=== PATIENT | female | born 1970 | race Caucasian/White ===

== ENCOUNTER 2020-07-13 21:48 | Emergency (ER) | payer OTHER ==
[~2020-07-13] VITALS: Ht 175.3 cm; Wt 90.7 kg
[~2020-07-13 21:48] MED LIST: ACCUNEB SO1.25 MG/1; ACETAMINOPHEN-1 EAC1 PO; ALBUTEROL INH INH; ALBUTEROL2.5 MG/31 IH; ALORA1 EAC3 TOP; AMOXICILLIN/POTASSIU; AMOXICILLIN500 M1 PO; APAP/CODEINE ELI5 M1 PO; ATIVAN1 M1 PO; ATIVAN1 MG PO; ATROVENT15 ML NS; AUGMENTIN 875875 MG PO; AURALGAN EAR DR14 ML OT; AZITHROMYCIN 2250 MG PO; BACLOFEN 10MG T10 MG PO; BACTRIM DS TAB1 EACH PO; BENADRYL25 MG PO; BUSPIRONE HCL10 MG; BUTALB-APAP-CA1 EACH PO; CARAFATE1 GM PO; CARISOPRODOL 3350 MG; CARISOPRODOL 3350 MG PO; CATAPRES-TTS 10.1 M2 TD; CELEBREX 200 M200 MG PO; CELEXA20 MG PO; CELEXA40 MG PO; CIPROFLOXACIN500 M1 PO; CLARITIN10 MG PO; CLONAZEPAM 1 MG1 M1 PO; CYMBALTA30 MG PO; DICLOFENAC SODI75 MG PO; DIFLUCAN150 MG PO; DOXYCYCLINE 10100 MG PO; EXALGO16 MG PO; FIORICET 50-321 EACH PO; FLAGYL500 M1 PO; FLAGYL500 MG PO; FLEXERIL PO; FLONASE NS; HYDROCODON-ACE1 EAC7; HYDROCODONE-AC120 ML PO; HYDROCODONE-AP1 EA14; HYDROCODONE-AP1 EAC6 PO; HYDROCODONE-APA1 TA1; IBUPROFEN 600600 M1 PO; IBUPROFEN 800800 M1 PO; IBUPROFEN 800800 MG PO; IMITREX100 MG PO; INDOMETHACIN 2525 MG PO; LOESTRIN 24 FE1 EACH PO; LORTAB 5 MG/5001 TA1 PO; MAXALT MLT10 MG PO; MEDROLDOSEPACK PO; MIDRIN CAPSULE1 CAP; MIRENA1 EACH IY; MS CONTIN 60 MG60 MG; MUCINEX22 ML; MULTIVITAMINS1 EAC7 PO; NAPROSYN500 MG PO; NORCO 5-325 TA1 EAC1 PO; NORCO 5-325 TA1 EACH PO; NORCO 7.5-3251 EACH; OPANA ER30 MG PO; OPANA5 MG PO; OTHER MISCELL; PERCOCET 10-321 EAC1 PO; PERCOCET 5-3251 EACH PO; PHENAZOPYRIDIN200 M2 PO; PHENERGAN 25 MG25 M1; PHENERGAN 25 MG25 M1 PO; PHENERGAN25 M1 RECTAL; PREDNISONE 20 M20 M1 PO; PREDNISONE 20 M20 MG PO; PREDNISONE50 MG PO; PROMETHAZINE HC25 M1 PO; QVAR8.7 G1 INH; RANITIDINE 150150 MG PO; REGLAN10 MG PO; RELPAX40 MG; REQUIP 1 MG TABL1 M1 PO; ROBAXIN500 MG PO; SINGULAIR; SINGULAIR 10 MG10 M1 PO; SOMA250 MG PO; SUBOXONE 8 MG-1 EAC3 SUBLING; SUMATRIPTAN; SYMBICORT160 MCG/4.; SYMBICORT80 MCG/4.1 INH; TIZANIDINE HCL4 MG PO; TOPAMAX 100 MG100 MG; TOPAMAX 100 MG100 MG PO; TOPAMAX100 MG PO; TOPAMAX200 MG PO; TORADOL 10 MG T10 MG PO; TUSSIONEX PENN473 ML PO; VENTOLIN HFA 1818 GM; VICODIN 5-5001 EACH PO; XANAX 0.25 MG0.25 MG PO; XANAX 0.5 MG0.5 M1; XANAX 0.5 MG0.5 MG PO; ZANAFLEX4 MG PO; ZOFRAN ODT4 MG DISSOLVE; ZOFRAN ODT4 MG PO; ZOFRAN ODT4 MG SUBLING; ZOMIG2.5 M1 NS; ZPAK PO; [UNRECOGNIZED DRUG - OTHER] PO
[2020-07-13] MEDS ORDERED: CYMBALTA60 MG PO (22:16)
[2020-07-13] MEDS ORDERED: ROPINIROLE HCL0.5 MG PO (22:16)
[2020-07-13 22:27] LABS: URINE BILIRUBIN NEGATIVE (Negative); URINE BLOOD NEGATIVE (Negative); URINE CLARITY CLEAR; URINE COLOR YELLOW; URINE GLUCOSE-RANDOM* NEGATIVE (Negative); URINE KETONES TRACE (Negative); URINE LEUKOCYTES-REFLEX NEGATIVE (Negative); URINE NITRITE-REFLEX NEGATIVE (Negative); URINE PROTEIN (DIPSTICK) NEGATIVE (Negative); URINE SPECIFIC GRAVITY >= 1.030 (1.005-1.035)
[2020-07-13 23:58] LABS: ANION GAP 11 mmol/L (7-16); BUN 13 mg/dL (7-18); CALCIUM 8.4 mg/dL (8.5-10.1); CHLORIDE 107 mmol/L (98-107); CO2 28 mmol/L (21-32); CREATININE 0.6 mg/dL (0.6-1.0); GLUCOSE 85 mg/dL (74-106); SODIUM 146 mmol/L (136-145)
[2020-07-14 00:05] LABS: ALBUMIN 3.4 g/dL (3.4-5.0); DIRECT BILIRUBIN < 0.1 mg/dL (<0.1-0.2); LIPASE 123 U/L (73-393); SGOT 23 U/L (15-37); SGPT 16 U/L (30-65); TOTAL BILIRUBIN 0.4 mg/dL (0.2-1.0); TOTAL PROTEIN 6.6 g/dL (6.4-8.2)
[2020-07-14 00:07] LABS: POTASSIUM 4.7 mmol/L (3.5-5.1)
[2020-07-14 01:15] LABS: ABSOLUTE NEUTROPHILS 4.1 thou/uL (1.4-8.2); BASOPHILS 0.6 % (0.0-2.0); EOSINOPHILS 3.2 % (0.0-3.0); HEMATOCRIT 38.3 % (37.0-47.0); LYMPHOCYTES 47.5 % (24.0-44.0); MCV 91.4 fL (80.0-100.0); MONOCYTES 5.6 % (1.0-8.0); PLATELET COUNT 163 thou/uL (150-400); POLYS 43.1 % (36.0-66.0); RBC 4.19 mil/uL (4.20-5.00); RDW 12.7 % (10.5-14.5); WBC 9.5 thou/uL (4.0-11.0)
[2020-07-14 05:09] VITALS: BP 117/63
== END 2020-07-14 05:09 | disposition home or self-care (01) ==
LOC: ER 21:48
PROVIDERS: Emergency Medicine
DX: R10.9 Unspecified abdominal pain (principal); R11.0 Nausea; G43.909 Migraine, unspecified, not intractable, without status migrainosus; J45.909 Unspecified asthma, uncomplicated; M79.7 Fibromyalgia; F17.210 Nicotine dependence, cigarettes, uncomplicated; Z88.1 Allergy status to other antibiotic agents; Z88.8 Allergy status to other drugs, medicaments and biological substances; Z79.899 Other long term (current) drug therapy; Z90.49 Acquired absence of other specified parts of digestive tract

== ENCOUNTER 2020-09-01 21:48 | Emergency (ER) | payer OTHER ==
[~2020-09-01] VITALS: Ht 175.3 cm; Wt 91.2 kg
[~2020-09-01 21:48] MED LIST changes: +CYMBALTA60 MG PO; +ROPINIROLE HCL0.5 MG PO
[2020-09-01 21:55] VITALS: BP 136/92
[2020-09-01] MEDS ORDERED: PERCOCET 10-321 EAC1 PO (22:02)
== END 2020-09-01 22:49 | disposition left against medical advice (07) ==
LOC: ER 21:48
DX: R10.32 Left lower quadrant pain (principal); G43.909 Migraine, unspecified, not intractable, without status migrainosus; J45.909 Unspecified asthma, uncomplicated; F17.210 Nicotine dependence, cigarettes, uncomplicated; Z90.49 Acquired absence of other specified parts of digestive tract; Z90.710 Acquired absence of both cervix and uterus; Z88.1 Allergy status to other antibiotic agents; Z88.6 Allergy status to analgesic agent; Z88.8 Allergy status to other drugs, medicaments and biological substances